=== PATIENT | female | born 1965 ===

== ENCOUNTER 2017-02-06 08:45 | Outpatient (RCR) | payer BC | END 2017-04-10 11:00 | LOC: MKS.ESL.PT 08:45 | DX: M25.512 Pain in left shoulder (principal) | CPT/HCPCS: G0283-GP ==

== ENCOUNTER 2017-07-10 08:52 | Observation (INO) | payer BC ==
[~2017-07-10] VITALS: Ht 167.6 cm; Wt 118.7 kg
[2017-07-10 09:29] LABS: BASO # 0.1 (0.0-0.2); BASO % 0.7 % (0.0-2.0); EOS # 0.1 (0.0-0.7); EOS % 1.1 % (0-4.0); GRAN # 4.7 (1.4-6.5); GRAN % 47.5 % (42.2-75.2); HEMATOCRIT 42.3 % (37.0-47.0); HEMOGLOBIN 14.7 g/dl (12.5-16.0); LYMPH # 3.8 (1.2-3.4); LYMPH % 38.4 % (20.0-51.0); MEAN CELL VOLUME 90 fl (80.0-100.0); MEAN CORPUSCULAR HEMOGLOBIN 31 pg (27.0-31.0); MEAN CORPUSCULAR HGB CONC 35 g/dl (33.0-37.0); MEAN PLATELET VOLUME 10.1 fl (7.4-10.4); MONO # 1.2 (0.1-0.6); MONO % 11.8 % (1.7-9.3); PLATELET COUNT 278 K/mm3 (130-400); RED BLOOD COUNT 4.69 M/mm3 (4.10-5.30); WHITE BLOOD COUNT 9.8 K/mm3 (4.8-10.8)
[2017-07-10 09:38] LABS: ADJUSTED CALCIUM 9.1 mg/dL (8.4-10.2); ALANINE AMINOTRANSFERASE 50 U/L (9-52); ALBUMIN 4.7 gm/dL (3.5-5.0); ALKALINE PHOSPHATASE 91 U/L (50-136); ANION GAP 11 mmol/L (7-16); BILIRUBIN,TOTAL 0.7 mg/dL (0.0-1.0); BLOOD UREA NITROGEN 14 mg/dL (7-17); CALCIUM 9.7 mg/dL (8.4-10.2); CARBON DIOXIDE 25 mmol/L (22-30); CHLORIDE 103 mmol/L (98-107); CREATININE, serum 0.81 mg/dL (0.52-1.25); GLUCOSE 92 mg/dL (74-106); LIPASE 106 U/L (23-300); POTASSIUM 3.8 mmol/L (3.4-5.0); SODIUM 139 mmol/L (137-145); TOTAL PROTEIN 7.5 gm/dL (6.4-8.2)
[2017-07-10 09:50] LABS: B-TYPE NATRIURETIC PEPTIDE 99 pg/mL (0-125)
[2017-07-10 09:51] LABS: TROPONIN-I < 0.012 ng/mL (0.000-0.034)
[2017-07-10] MEDS ORDERED: CLARITIN 1010 MG/TAB PO (12:57)
[2017-07-10] MEDS ORDERED: EPIPEN 2-PAK1 MG/ML IM (12:57)
[2017-07-10 14:36] VITALS: BP 156/91; PULSE 65; TEMP 97.3
[2017-07-10 16:08] VITALS: BP 153/113; PULSE 74; TEMP 97.3
[2017-07-10 16:14] LABS: CHOLESTEROL RISK RATIO 3.4
[2017-07-10 17:03] VITALS: BP 135/76
[2017-07-10 20:26] VITALS: BP 143/88; PULSE 77; TEMP 97.6
[2017-07-11] VITALS (10 sets, daily range): BP systolic 122–167; BP diastolic 70–87; PULSE 66–104; TEMP 97.5–98.4
== END 2017-07-11 14:15 | disposition home or self-care (01) ==
LOC: COL.ER 08:52 → MEDICAL 10:20
PROVIDERS: Emergency Medicine; Internal Medicine
DX: R07.9 Chest pain, unspecified (principal); I10 Essential (primary) hypertension; Z90.710 Acquired absence of both cervix and uterus; Z85.41 Personal history of malignant neoplasm of cervix uteri; Z87.891 Personal history of nicotine dependence; Z85.820 Personal history of malignant melanoma of skin; Z82.49 Family history of ischemic heart disease and other diseases of the circulatory system; Z82.3 Family history of stroke
CPT/HCPCS: A9502; G0378; J1650; J2785; J3010; J7030

== ENCOUNTER → 2018-01-14 | Outpatient (CLI) | payer BC ==
[~2018-01-14] MED LIST: CLARITIN 1010 MG/TAB PO; EPIPEN 2-PAK1 MG/ML IM
== END ==
LOC: MC.RAD 14:40
DX: Z12.31 Encounter for screening mammogram for malignant neoplasm of breast (principal)

== ENCOUNTER → 2019-03-07 | Outpatient (CLI) | payer BC | LOC: MC.RAD 10:02 | DX: Z12.31 Encounter for screening mammogram for malignant neoplasm of breast (principal) ==

== ENCOUNTER 2020-05-11 07:26 | Emergency (ER) | payer BC ==
[~2020-05-11] VITALS: Ht 167.6 cm; Wt 121.4 kg
[2020-05-11 07:31] VITALS: TEMP 98
[2020-05-11] MEDS ORDERED: HCTZ 25MG TAB25 MG PO (07:51)
[2020-05-11 07:57] LABS: PROTHROMBIN TIME 10.7 SECONDS (9.7-12.8)
[2020-05-11 08:00] LABS: PARTIAL THROMBOPLASTIN TIME 37.6 SECONDS (26.0-37.0)
[2020-05-11 08:02] LABS: BASO # 0.1 (0.0-0.2); BASO % 0.7 % (0.0-2.0); EOS # 0.1 (0.0-0.7); EOS % 1.4 % (0-4.0); GRAN # 4.4 (1.4-6.5); GRAN % 51.2 % (42.2-75.2); HEMATOCRIT 42.3 % (37.0-47.0); HEMOGLOBIN 14.8 g/dl (12.5-16.0); LYMPH # 3.2 (1.2-3.4); LYMPH % 36.5 % (20.0-51.0); MEAN CELL VOLUME 91 fl (80.0-100.0); MEAN CORPUSCULAR HEMOGLOBIN 32 pg (27.0-31.0); MEAN CORPUSCULAR HGB CONC 35 g/dl (33.0-37.0); MEAN PLATELET VOLUME 10.3 fl (7.4-10.4); MONO # 0.9 (0.1-0.6); MONO % 9.9 % (1.7-9.3); PLATELET COUNT 287 K/mm3 (130-400); RED BLOOD COUNT 4.63 M/mm3 (4.10-5.30); REDCELL DISTRIBUTION WIDTH-CV 12.3 % (11.5-14.5)
[2020-05-11 08:06] LABS: ALANINE AMINOTRANSFERASE 40 U/L (4-34); ALBUMIN 4.5 gm/dL (3.5-5.0); ALKALINE PHOSPHATASE 68 U/L (50-136); ANION GAP 7 mmol/L (7-16); AST,SGOT 45 U/L (15-37); BILIRUBIN,TOTAL 0.7 mg/dL (0.0-1.0); BLOOD UREA NITROGEN 16 mg/dL (7-17); CALCIUM 9.2 mg/dL (8.4-10.2); CARBON DIOXIDE 27 mmol/L (22-30); CHLORIDE 102 mmol/L (98-107); CREATININE, serum 0.89 (0.52-1.25); GLUCOSE 114 mg/dL (74-106); POTASSIUM 3.8 mmol/L (3.4-5.0); SODIUM 137 mmol/L (137-145); TOTAL PROTEIN 7.3 gm/dL (6.4-8.2)
[2020-05-11 08:17] LABS: TROPONIN-I < 0.012 ng/mL (0.000-0.035)
[2020-05-11 08:29] LABS: D-DIMER < 200.00 ng/mLDDu (200-230)
[2020-05-11 09:44] VITALS: BP 136/75; PULSE 71
== END 2020-05-11 09:19 | disposition home or self-care (01) ==
LOC: COL.ER 07:26
PROVIDERS: Family Medicine
DX: R07.89 Other chest pain (principal); Z88.6 Allergy status to analgesic agent

== ENCOUNTER → 2020-05-28 | Outpatient (CLI) | payer BC ==
[~2020-05-28] MED LIST changes: +HCTZ 25MG TAB25 MG PO
== END ==
LOC: BHSO 10:58
DX: F43.10 Post-traumatic stress disorder, unspecified (principal)